=== PATIENT | female | born 1945 | race Caucasian/White ===

== ENCOUNTER 2023-07-29 06:25 | Emergency (ER) | payer MEDICARE, SELFPAY ==
[2023-07-29 06:27] VITALS: BP 179/93
--- NOTE | 2023-07-29 06:47 | ED.GENMED ---
History of Present Illness
General
Chief Complaint: Skin Surface Trauma
Source: patient
Time Seen by Provider: 07/29/23 06:41
Travel History
Have you had any contact with someone who has COVID-19?: No
Do you have any symptoms of coronavirus? Fever > 100 degrees, chills, cough, shortness of breath, sore throat, loss of taste or smell, muscle aches, or headache?: No
History of Present Illness
History of Present Illness:
This patient is a 77-year-old female who jokingly says that she 'got in a fight with her ironing board. More specifically, she describes moving the board and it 'snapped back' causing a superficial skin tear with a questionable puncture to the
dorsal aspect of her right forearm, associated with mild swelling to the dorsal aspect of the right hand. Since that time, the wound is healing well without pain, redness, warmth, drainage. However, she has persistent mild dorsal hand swelling and
tenderness to palpation and wonders if she suffered a fracture. She denies other complaints.
Past History
Past History
ED Past Medical History: GERD, HTN, Hypercholesterolemia (Intolerant to statins) and Other (Osteoarthritis, Migraines, Vertigo,)
ED Past Surgical History: Gynecological (Laparoscopic oophorectomy November 2012) and Orthopedic (Right total knee replacement, left total hip replacement. Right carpal tunnel release.)
Social History
Tobacco: Former smoker
Alcohol: Occasional
Personal: Single
Living: alone
Employment: Retired
Family History
Family History: Hypertension
Phy Exam
Physical Exam
Physical Exam:
GENERAL: Alert , in no apparent distress
EYE: pupils equal and reactive
NECK: Supple, no significant adenopathy.
ENT: o/p clr, mmm.
CARDIAC: Regular rate and rhythm .
LUNGS: Clear breath sounds bilaterally, no acute respiratory distress, no wheezes/rales/rhonchi
NEUROLOGICAL: Alert and oriented, grossly nonfocal
SKIN: Warm and dry, skin intact except for dry 'V' shaped skin tear noted R forearm area without assoc redness/warmth/drainage/ttp/swelling.
MUSCULOSKELETAL: No edema, well perfused. Hand: R min ttp noted MC midshaft 2-4 area without deformity/crepitus/redness/warmth. Min swelling noted here. No bony ttp noted otherwise.
PSYCH: Normal and appropriate interaction.
Course
Orders/Labs/Results
Orders:
Orders
07/29/23 06:47
Hand, Right 3 View [CR Hand - Right Min 3 Views] Urgent
Comment:
Reason For Exam: pain s/p injury
Vital Signs
Initial and Last Documented VS:
Initial Vital Signs
Temp Pulse Resp BP Pulse Ox
98.3 F 74 18 179/93 95
07/29/23 06:27 07/29/23 06:27 07/29/23 06:27 07/29/23 06:27 07/29/23 06:27
Last Documented Vital Signs
Temp Pulse Resp BP Pulse Ox
98.3 F 74 18 179/93 95
07/29/23 06:27 07/29/23 06:27 07/29/23 06:27 07/29/23 06:27 07/29/23 06:27
*Critical Care Note
Total Time (30-74mins, 75-104mins- exclusive of procedures): Not Applicable
Update Note
Update Note:
Patient presents to the Emergency Department with ___right hand pain and swelling
Number and Complexity of Problems Addressed at the Encounter
� Chronic conditions affecting care:
� Acute Exacerbation and/or Progression of Chronic Illness:
� Differential Diagnosis includes: But not limited to contusion, soft tissue injury, fracture, infection, etc.
Amount and/or Complexity of Data to be Reviewed and Analyzed
� I performed an independent evaluation of and my interpretation is:
EKG:
CT:
Xrays:read by kj knowles
Laboratory Studies:
Other:
� Review of other/old records reveals:
� Clinical information was obtained by an independent historian:
� Prescriptions/Medications Considered but not given:
� Further testing considered but not performed:
Risk of Complications and/or Morbidity or Mortality of Patient Management
� Social determinants of health affecting care:
� Discussion with other providers (PCP, Hospitalists, Consultants, etc):
� Escalation of care including admission/observation vs risk of discharge considered: No fracture identified, strongly suspect contusion related to initial injury. Close inspection does not reveals signs/symptoms to suggest
cellulitis/abscess/etc. Discussed with patient importance of follow-up, continued good wound care, and reasons to return to the ER
ED Attending Note
-
Portions of this chart may have been created with voice recognition software.� Occasional wrong word or��sound alike� substitutions may have occurred due to the inherent limitations of voice recognition software.
Discharge Plan
Departure
Patient Disposition: Home (Routine Discharge)
Date of Disposition: 07/29/23
Time of Disposition: 07:24
Patient with high blood pressure during this ER visit?: Yes
Condition: Good
Discharge Problem:
Contusion
Instructions: Wound Care ED, BLOOD PRESSURE, Contusion
Prescriptions:
No Action
multivitamin with folic acid [Tab-A-Shaila] 1 TABLET tablet
1 tab PO DAILY
calcium carbonate-vitamin D3 [Oyster Shell Calcium-Vit D3] 500 MG tablet
500 mg PO DAILY Qty: 0 0RF
aspirin 81 MG tablet,delayed release (DR/EC)
81 mg PO DAILY
famotidine 20 MG tablet
20 mg PO BID 7 Days Qty: 14 0RF
zinc sulfate 220 MG capsule
220 mg PO DAILY 7 Days Qty: 7 0RF
melatonin 5 MG tablet
5 mg PO DAILY@2000 7 Days Qty: 7 0RF
Patient Comments:
pt states does not take
ondansetron HCl 4 MG tablet
4 mg PO Q8HPRN PRN (Reason: nausea) Qty: 20 0RF
ascorbic acid (vitamin C) [Vitamin C] 500 MG tablet
1,000 mg PO DAILY 7 Days Qty: 7 0RF
cholecalciferol (vitamin D3) 1,000 UNITS tablet
1,000 units PO DAILY 7 Days Qty: 7 0RF
meclizine 25 MG tablet
25 mg PO Q8HPRN PRN (Reason: Dizziness) Qty: 15 0RF
clindamycin HCl 300 mg capsule
300 mg PO Q6H Qty: 40 0RF
methylprednisolone [Medrol (Bull)] 4 mg tablets,dose pack
4 mg PO DAILY Qty: 21 0RF
Rx Instructions:
Take as directed
lisinopril 5 mg Tablet
5 mg PO DAILY
meclizine [Antivert] 25 mg Tablet,Chewable
25 mg PO BIDPRN PRN (Reason: nausea or vertigo) Qty: 20 0RF
diazepam [Valium] 2 mg tablet
2 mg PO BID PRN (Reason: Severe Dizziness) Qty: 10 0RF
Activity Restrictions/Additional Instructions:
IF YOU DEVELOP INCREASING/NEW PAIN OR SWELLING, FEVER, DRAINAGE, NUMBNESS, REDNESS, OR OTHER WORRISOME SIGNS, GO TO THE ER IMMEDIATELY!
Interventions
Interventions:
*General Assessment Last Done: 07/29/23 06:27
*Neglect/Abuse Screening Last Done: 07/29/23 06:27
*ED COVID-19 Vaccine History Last Done: 07/29/23 06:32
Discharge Date and Time
Print Language: [place] CITIZ[place]
[2023-07-29 07:15] VITALS: BP 158/70
== END 2023-07-29 07:42 | disposition home or self-care (01) ==
LOC: EMR 06:25
PROVIDERS: EMERGENCY PHYSICIAN Emergency Medicine; FAMILY PHYSICIAN Internal Medicine
DX: S60.221A Contusion of right hand, initial encounter (principal); W22.8XXA Striking against or struck by other objects, initial encounter; I10 Essential (primary) hypertension; E78.00 Pure hypercholesterolemia, unspecified; K21.9 Gastro-esophageal reflux disease without esophagitis; G43.909 Migraine, unspecified, not intractable, without status migrainosus; Z96.651 Presence of right artificial knee joint; Z96.642 Presence of left artificial hip joint; Z87.891 Personal history of nicotine dependence
CPT/HCPCS: 99283; 73130

== ENCOUNTER → 2024-06-04 06:24 | Outpatient (REF) | payer MEDICARE, SELFPAY ==
[2024-06-04 09:10] LABS: % Basophils 1.2 % (0-2); % Eosinophils 3.8 % (0-6); % Immature Granulocytes 0.3 % (0-0.5); % Lymphocytes 30.7 % (20.5-51.1); % Monocytes 7.7 % (1.7-9.3); % Neutrophils 56.3 % (42.2-75.2); Absolute Basophils 0.1 10^3/uL (0-0.2); Absolute Eosinophils 0.3 10^3/uL (0-0.7); Absolute Monocytes 0.5 10^3/uL (0.1-0.6); Absolute Neutrophils 3.7 10^3/uL (1.4-6.5); Hematocrit 43.1 % (37.0-47.0); Hemoglobin 14.5 g/dL (12.0-16.0); Mean Corp Hgb Conc. 33.6 g/dL (33.0-37.0); Mean Corpuscular Hgb 30.3 pg (27.0-31.0); Mean Corpuscular Volume 90.2 fL (81.0-99.0); Mean Platelet Volume 10.4 fL (7.4-10.4); Nucleated Red Blood Cells % 0 %; Platelet Count 300 10^3/uL (130-400); Red Blood Cell Count 4.78 10^6/uL (4.20-5.40); Red Cell Dist. Width 13.1 % (11.5-14.5); White Blood Cell Count 6.6 10^3/uL (4.8-10.8)
[2024-06-04 10:21] LABS: ALT (SGPT) 29 U/L (0-35); AST (SGOT) 33 U/L (14-36); Albumin 4.2 g/dl (3.5-5.0); Alkaline Phosphatase 92 U/L (38-126); Blood Urea Nitrogen 12 mg/dl (7-17); Calcium 9.7 mg/dl (8.4-10.2); Carbon Dioxide 23 mmol/L (22-30); Chloride 109 mmol/L (98-107); Glucose 106 mg/dl (70-99); HDL Cholesterol 77 mg/dl; LDL Cholesterol, Calculated 103 mg/dl; Potassium 4.3 mmol/L (3.5-5.1); Sodium 143 mmol/L (135-145); Total Bilirubin 1.1 mg/dl (0.2-1.3); Total Cholesterol 213 mg/dl (50-199); Total Protein 6.6 g/dl (6.3-8.2); Triglyceride 168 mg/dl (10-149); Very Low Density Lipoprotein 33 mg/dl (0-30); eGFR > 60.00
== END ==
LOC: HWLAB 06:24
PROVIDERS: ATTENDING PHYSICIAN Internal Medicine
DX: R63.5 Abnormal weight gain (principal); I10 Essential (primary) hypertension; E78.2 Mixed hyperlipidemia
CPT/HCPCS: 36415; 80053; 80061; 84443; 85025

== ENCOUNTER → 2024-09-17 08:43 | Outpatient (REF) | payer MEDICARE, SELFPAY | LOC: HWRAD 08:43 | PROVIDERS: ATTENDING PHYSICIAN Obstetrics & Gynecology; FAMILY PHYSICIAN Internal Medicine | DX: R10.2 Pelvic and perineal pain (principal) | CPT/HCPCS: 76830; 76856 ==

== ENCOUNTER 2024-10-06 14:02 | Emergency (ER) | payer MEDICARE, SELFPAY ==
[2024-10-06 14:03] VITALS: BP 194/101
[2024-10-06 14:17] LABS: Hematocrit 39.4 % (37.0-47.0); Hemoglobin 13.2 g/dL (12.0-16.0); Mean Corp Hgb Conc. 33.5 g/dL (33.0-37.0); Mean Corpuscular Volume 89.1 fL (81.0-99.0); Nucleated Red Blood Cells % 0 %; Platelet Count 305 10^3/uL (130-400); Red Cell Dist. Width 13.3 % (11.5-14.5)
[2024-10-06 14:41] LABS: ALT (SGPT) 27 U/L (0-35); AST (SGOT) 31 U/L (14-36); Albumin 4.3 g/dl (3.5-5.0); Alkaline Phosphatase 87 U/L (38-126); Blood Urea Nitrogen 9 mg/dl (7-17); Calcium 9.3 mg/dl (8.4-10.2); Carbon Dioxide 27 mmol/L (22-30); Chloride 103 mmol/L (98-107); Glucose 120 mg/dl (70-99); Potassium 4.5 mmol/L (3.5-5.1); Sodium 136 mmol/L (135-145); Total Protein 6.8 g/dl (6.3-8.2); eGFR > 60.00
[2024-10-06 14:44] LABS: Troponin I < 0.012 ng/ml
[2024-10-06] MEDS: ZOFRAN 4 MG IV (16:19)
[2024-10-06 16:21] VITALS: BP 175/76
[2024-10-06] MEDS: NSS 500 IV (16:23)
[2024-10-06 17:00] VITALS: BP 170/87
[2024-10-06 17:17] LABS: Lipase 27 U/L (23-300)
--- NOTE | 2024-10-06 17:52 | ED.GENMED ---
History of Present Illness
General
Chief Complaint: Abdominal Symptoms
Source: patient
Exam Limitations: none
Time Seen by Provider: 10/06/24 15:48
Nursing documentation reviewed up to this point in time: agreed with
History of Present Illness
History of Present Illness:
78-year-old female past history of hypertension hyperlipidemia presenting to the emergency department today with concerns of vomiting since last night some lightheadedness associated. No chest pain or shortness of breath. No abdominal pain.
Denies any sick contacts.
Past History
Past History
ED Past Medical History: GERD, HTN, Hypercholesterolemia (Intolerant to statins) and Other (Osteoarthritis, Migraines, Vertigo,)
ED Past Surgical History: Gynecological (Laparoscopic oophorectomy November 2012) and Orthopedic (Right total knee replacement, left total hip replacement. Right carpal tunnel release.)
Social History
Tobacco: Former smoker
Alcohol: Occasional
Personal: Single
Living: alone
Employment: Retired
Family History
Family History: Hypertension
Review of Systems
Review of Systems
Allergies reviewed?: Yes
All Other Systems: ROS reviewed and negative except as documented in HPI and ROS
Phy Exam
Physical Exam
Physical Exam:
GENERAL: Alert , in no apparent distress
EYE: pupils equal and reactive
NECK: Supple, no significant adenopathy.
ENT: o/p clr, mmm.
CARDIAC: Regular rate and rhythm .
LUNGS: Clear breath sounds bilaterally, no acute respiratory distress, no wheezes/rales/rhonchi
ABDOMEN: Soft, without focal tenderness, no r/g, no cvat
NEUROLOGICAL: Alert and oriented, no focal neuro deficits
SKIN: Warm and dry, skin intact.
MUSCULOSKELETAL: No edema, well perfused.
PSYCH: Normal and appropriate interaction.
Course
Orders/Labs/Results
Orders:
Orders
10/06/24 14:06
Electrocardiogram (*1) Urgent
Reason for Study: Vertigo / Dizzy
EKG- Treatment ONCE
10/06/24 14:10
Complete Blood Count/With Diff Urgent
Comprehensive Metabolic Panel Urgent
Lipase Urgent
Comment: ADD ON
Troponin I Urgent
10/06/24 15:58
0.9% Sodium Chloride 500 ml [Nss] 500 ml IV BOLUS
Ondansetron Injectable [Zofran] 4 mg IV NOW STA
10/06/24 16:00
Add On- LAB Urgent
Tests Added?: lipase level
Abnormal Lab Results
10/06/24
14:10
Lymphocytes % 18.9 L %
(20.5-51.1)
Glucose 120 H mg/dl
(70-99)
10/06/24 14:10
10/06/24 14:10
Vital Signs
Initial and Last Documented VS:
Initial Vital Signs
Temp Pulse Resp BP Pulse Ox
98.4 F 82 16 194/101 96
10/06/24 14:03 10/06/24 14:03 10/06/24 14:03 10/06/24 14:03 10/06/24 14:03
Last Documented Vital Signs
Temp Pulse Resp BP Pulse Ox
98.4 F 82 16 170/87 96
10/06/24 14:03 10/06/24 14:03 10/06/24 14:03 10/06/24 17:00 10/06/24 17:53
MDM/Problems Addressed
MDM/Problems Addressed:
78-year-old female presenting to the emergency department today with concerns of nausea and vomiting throughout the day today starting last night. Upon arrival vital signs showing elevated blood pressure otherwise vital signs are normal. Labs
without emergent findings. Normal lipase normal liver function test no evidence of cardiac etiology no chest pain or shortness of breath EKG and troponin without emergent findings. Patient was given Zofran with significant improvement of symptoms
and also given a liter of fluid. Patient then able to tolerate by mouth. Patient also able to ambulate stable for discharge at this time. Return precautions given.
*Pulse Oximetry
SaO2: 96
Nasal Cannula flow liters per minute: 2
Patient hypoxic: no (96)
*Critical Care Note
Total Time (30-74mins, 75-104mins- exclusive of procedures): Not Applicable
ED Attending Note
-
Portions of this chart may have been created with voice recognition software.� Occasional wrong word or��sound alike� substitutions may have occurred due to the inherent limitations of voice recognition software.
Discharge Plan
Departure
Patient Disposition: Home (Routine Discharge)
Date of Disposition: 10/06/24
Time of Disposition: 18:32
Patient with high blood pressure during this ER visit?: No
Condition: Good
Discharge Problem:
Vomiting
Instructions: Nausea and Vomiting, Adult (DC)
Prescriptions:
New
ondansetron 4 mg tablet,disintegrating
4 mg PO Q6H PRN (Reason: nausea and vomiting) Qty: 7 0RF
No Action
multivitamin with folic acid [Tab-A-Shaila] 1 TABLET tablet
1 tab PO DAILY
calcium carbonate-vitamin D3 [Oyster Shell Calcium-Vit D3] 500 MG tablet
500 mg PO DAILY Qty: 0 0RF
aspirin 81 MG tablet,delayed release (DR/EC)
81 mg PO DAILY
famotidine 20 MG tablet
20 mg PO BID 7 Days Qty: 14 0RF
zinc sulfate 220 MG capsule
220 mg PO DAILY 7 Days Qty: 7 0RF
melatonin 5 MG tablet
5 mg PO DAILY@1999 7 Days Qty: 7 0RF
Patient Comments:
pt states does not take
ondansetron HCl 4 MG tablet
4 mg PO Q8HPRN PRN (Reason: nausea) Qty: 20 0RF
ascorbic acid (vitamin C) [Vitamin C] 500 MG tablet
1,000 mg PO DAILY 7 Days Qty: 7 0RF
cholecalciferol (vitamin D3) 1,000 UNITS tablet
1,000 units PO DAILY 7 Days Qty: 7 0RF
meclizine 25 MG tablet
25 mg PO Q8HPRN PRN (Reason: Dizziness) Qty: 15 0RF
clindamycin HCl 300 mg capsule
300 mg PO Q6H Qty: 40 0RF
methylprednisolone [Medrol (Bull)] 4 mg tablets,dose pack
4 mg PO DAILY Qty: 21 0RF
Rx Instructions:
Take as directed
lisinopril 5 mg Tablet
5 mg PO DAILY
meclizine [Antivert] 25 mg Tablet,Chewable
25 mg PO BIDPRN PRN (Reason: nausea or vertigo) Qty: 20 0RF
diazepam [Valium] 2 mg tablet
2 mg PO BID PRN (Reason: Severe Dizziness) Qty: 10 0RF
Referrals:
Waldo Sun MD [Family Provider, Internal Medicine]
Activity Restrictions/Additional Instructions:
You came to the emergency department today with concerns of vomiting. Here and reassuring assessment. Please take the prescribed medication to help with nausea and return for any persisting or worsening symptoms.
Interventions
Interventions:
*Risk Screen - Suicide Last Done: 10/06/24 14:03
*General Assessment Last Done: 10/06/24 16:00
*Neglect/Abuse Screening Last Done: 10/06/24 14:03
*ED- Fall Risk Assessment Last Done: 10/06/24 16:00
*ED COVID-19 Vaccine History Last Done: 10/06/24 16:00
WS-Tsetpw-Ibblmcigmi Assessment Last Done: 10/06/24 16:00
Discharge Date and Time
Print Language: YI
== END 2024-10-06 18:55 | disposition home or self-care (01) ==
LOC: EMR 14:02
PROVIDERS: EMERGENCY PHYSICIAN Emergency Medicine; FAMILY PHYSICIAN Internal Medicine
DX: R11.10 Vomiting, unspecified (principal); I10 Essential (primary) hypertension; E78.00 Pure hypercholesterolemia, unspecified; K21.9 Gastro-esophageal reflux disease without esophagitis; M19.90 Unspecified osteoarthritis, unspecified site; Z79.82 Long term (current) use of aspirin; Z87.891 Personal history of nicotine dependence; Z96.651 Presence of right artificial knee joint; Z96.642 Presence of left artificial hip joint; Z82.49 Family history of ischemic heart disease and other diseases of the circulatory system
CPT/HCPCS: 99284; 96374; 96361; 80053; 83690; 84484; 85025; 93005

== ENCOUNTER → 2024-10-25 10:24 | Outpatient (REF) | payer MEDICARE, SELFPAY | LOC: HWWDC 10:24 | PROVIDERS: ATTENDING PHYSICIAN Obstetrics & Gynecology; FAMILY PHYSICIAN Internal Medicine | DX: Z12.31 Encounter for screening mammogram for malignant neoplasm of breast (principal) | CPT/HCPCS: 77063; 77067 ==